=== PATIENT | female | born 1985 | race Caucasian/White ===

== ENCOUNTER 2018-04-14 18:02 | Emergency (ER) | payer OTHER ==
[~2018-04-14] VITALS: Ht 154.9 cm; Wt 59.4 kg
[2018-04-14 18:03] VITALS: BP 111/71
[2018-04-14] MEDS ORDERED: BENA25CA4 PO (19:00)
[2018-04-14] MEDS ORDERED: PRED20TA PO (19:00)
== END 2018-04-14 19:10 | disposition home or self-care (01) ==
LOC: M ED 18:02
DX: R21 Rash and other nonspecific skin eruption (principal); F17.200 Nicotine dependence, unspecified, uncomplicated; Z88.8 Allergy status to other drugs, medicaments and biological substances

== ENCOUNTER → 2018-07-13 | Outpatient (CLI) | payer OTHER ==
[~2018-07-13] MED LIST: BENA25CA4 PO; GNP28TAB2 PO; PRED20TA PO
[2018-07-13 18:40] LABS: BASO # 0.1 10^3/uL (0.0-0.2); BASO % 0.6 % (0.0-1.0); EOS # 0.1 10^3/uL (0.0-0.50); EOS % 1.2 % (0.0-3.0); HEMATOCRIT 39.6 % (36.0-47.0); HEMOGLOBIN 13.7 g/dl (12.0-15.5); LYMPH # 2.4 10^3/uL (1.5-4.5); MEAN CORPUSCULAR HEMOGLOBIN 29.4 pg (27.0-33.0); MEAN CORPUSCULAR HGB CONC 34.6 g/dl (32.0-36.5); MONO # 0.6 10^3/uL (0.0-0.8); MONO % 5.7 % (0.0-5.0); NEUTROPHILS # 7.6 10^3/uL (1.8-7.7); NEUTROPHILS % 70.1 % (36.0-66.0); PLATELET COUNT, AUTOMATED 215 10^3/uL (150-450); RED BLOOD COUNT 4.66 10^6/uL (4.00-5.40); WHITE BLOOD COUNT 10.8 10^3/uL (4.0-10.0)
[2018-07-13 18:49] LABS: FREE T4 1.39 NG/DL (0.76-1.46); THYROID STIMULATING HORMONE 0.452 uIU/ML (0.358-3.740)
[2018-07-13 22:21] LABS: CHLAMYDIA DNA AMPLIFICATION NEGATIVE (NEGATIVE); GC DNA AMPLIFICATION NEGATIVE (NEGATIVE)
[2018-07-14 11:06] LABS: RUBELLA IgG QUALITATIVE IMMUNE (IMMUNE)
[2018-07-14 12:32] LABS: HIV 1&2 SCREEN CENTAUR NEGATIVE (NEGATIVE)
== END ==
LOC: M SMT 14:31
PROVIDERS: ATTEND Advanced Practice Midwife
DX: Z36.89 Encounter for other specified antenatal screening (principal); Z3A.01 Less than 8 weeks gestation of pregnancy

== ENCOUNTER 2018-07-15 03:41 | Emergency (ER) | payer OTHER ==
[~2018-07-15] VITALS: Ht 157.5 cm; Wt 60.5 kg
[2018-07-15 03:41] VITALS: BP 109/62
[~2018-07-15 03:41] MED LIST changes: -GNP28TAB2 PO
[2018-07-15] MEDS ORDERED: GNP28TAB2 PO (03:45)
[2018-07-15] MEDS ORDERED: ACETAMINOPHEN TAB 650MG DOSE (2X325MG) PO ONE (05:30)
== END 2018-07-15 06:04 | disposition home or self-care (01) ==
LOC: M ED 03:41
DX: Z04.71 Encounter for examination and observation following alleged adult physical abuse (principal); Y04.8XXA Assault by other bodily force, initial encounter; O9A.211 Injury, poisoning and certain other consequences of external causes complicating pregnancy, first trimester; Z3A.01 Less than 8 weeks gestation of pregnancy; Y07.03 Male partner, perpetrator of maltreatment and neglect; Y92.018 Other place in single-family (private) house as the place of occurrence of the external cause; Z88.8 Allergy status to other drugs, medicaments and biological substances

== ENCOUNTER → 2018-08-13 | Outpatient (CLI) | payer OTHER ==
[~2018-08-13] MED LIST changes: +GNP28TAB2 PO
== END ==
LOC: M SMT 09:16
PROVIDERS: ATTEND Obstetrics & Gynecology
DX: Z36.89 Encounter for other specified antenatal screening (principal)

== ENCOUNTER → 2018-10-01 | Outpatient (CLI) | payer OTHER ==
--- NOTE | 2018-10-01 10:57 | REP ---
Obstetric sonography: History: Supervision of . Findings: Scanning through the gravid uterus demonstrates a viable single intrauterine gestation in a cephalic lie. motion is observed and heart rate is recorded at 163 beats per minute. An anterior grade 0 placenta is seen without evidence of previa. Amniotic fluid is subjectively normal. Closed cervical length is 3.5 cm. No extrauterine abnormalities observed. There are bilateral choroid plexus cysts. An echogenic focus is seen within the left ventricle. No other anomaly is seen. Facial profile is seen but nose and lips are less than optimally seen. In addition, left ventricular cardiac outflow tract visualization and spine visualization are suboptimal. The following additional anatomic structures are identified and felt to be unremarkable: cranium, cavum, cerebellum and posterior fossa, lungs, four-chamber heart with right ventricular outflow tract view, diaphragm, left-sided stomach, abdominal wall cord insertion, three-vessel cord, kidneys and bladder, upper and lower extremities. Biometry chart: BPD 4.3 cm = 18 weeks 6 days Head circumference 16.4 cm = 19 weeks 1 day Abdominal circumference 13.5 cm = 19 weeks 0 days Femur length 3.1 cm = 19 weeks 3 days Humeral length 2.9 cm = 19 weeks 3 days HC/AC ratio normal 1.21. Cephalic index normal 0.71. Estimated weight 277 grams, 0 pounds 9 ounces, 49th percentile for 19 weeks 1 day. Impression: Viable single intrauterine gestation at 19 weeks 1 day by today's composite criteria. DIANA by today's sonography February 24, 2019. Bilateral choroid plexus cysts and an echogenic focus seen in the left ventricle. nose, lips, left ventricular outflow tract view and spine visualization are less than optimally achieved. Electronically Signed by Yovanny Tian MD 10/01/2018 11:20 A
== END ==
LOC: M RAD 09:00
PROVIDERS: ATTEND Obstetrics & Gynecology
DX: Z34.82 Encounter for supervision of other normal pregnancy, second trimester (principal); Z3A.19 19 weeks gestation of pregnancy

== ENCOUNTER → 2018-10-22 | Outpatient (CLI) | payer OTHER ==
[~2018-10-22] MED LIST changes: +NAPR250T4 PO; +OXYC1TAB23 PO
--- NOTE | 2018-10-22 07:55 | REP ---
Clinical: Anatomical evaluation. Comparison: 10/01/2018 . Findings: Examination demonstrates a single live intrauterine in breech presentation. motion is identified by technologist. Placenta is noted anterior and grade zero without evidence for placenta previa or abruption. Amniotic fluid volume is normal. Cervix measures 4.1 cm in length and appears closed. No evidence for nuchal cord. Gestational age by LMP 22 weeks 1 day with DIANA 02/24/2019 . Gestational age by current measurements 21 weeks 6 days with DIANA 02/26/2019 . FHR equals 147 beats per minute. Estimated weight 463 grams ( 41st percentile). Anatomical assessment demonstrates normal structures including cranium, choroid plexus, cavum, cerebellum/posterior fossa, facial features, lungs, four-chamber heart/ventricular outflow tracts, diaphragm, stomach, cord insertion/three-vessel cord, kidneys/bladder, and extremities. Suboptimal evaluation of the spine due to positioning. Previously noted choroid plexus cysts have resolved. Echogenic focus within the left cardiac ventricle consistent with prominent chordae tendineae. Impression: Single live intrauterine in breech presentation. Continued anatomical limitations as noted above. Electronically Signed by Dharmesh Mcdowell MD 10/22/2018 07:46 A
== END ==
LOC: M RAD 06:40
PROVIDERS: ATTEND Obstetrics & Gynecology
DX: O34.219 Maternal care for unspecified type scar from previous cesarean delivery (principal); Z3A.21 21 weeks gestation of pregnancy

== ENCOUNTER → 2018-11-11 | Outpatient (CLI) | payer OTHER ==
[~2018-11-11] MED LIST changes: -NAPR250T4 PO; -OXYC1TAB23 PO
--- NOTE | 2018-11-11 22:10 | REP ---
Clinical: Anatomical evaluation. Comparison: 10/22/2018 . Findings: Examination demonstrates a single live intrauterine in variable presentation. motion is identified by technologist. Placenta is noted anterior and grade one without evidence for placenta previa or abruption. Amniotic fluid volume is normal. Cervix measures 4.4 cm in length and appears closed. Nuchal cord cannot be excluded. Gestational age by LMP 24 weeks 5 days with DIANA 02/26/2019 . Gestational age by current measurements 24 weeks 5-day with DIANA it is 02/26/2019 . FHR equals 168 beats per minute. Estimated weight 726 grams ( 35th percentile). Anatomical assessment demonstrates normal structures including cranium, choroid plexus, cavum, cerebellum/posterior fossa, facial features, lungs, four-chamber heart/ventricular outflow tracts, diaphragm, stomach, cord insertion/three-vessel cord, kidneys/bladder, and extremities. Four-chamber heart views demonstrate prominent chordae tendineae. Limited evaluation of the spine again noted. Impression: 1. Single live intrauterine in variable presentation demonstrating appropriate interval growth. 2. Anatomical limitations as noted above may warrant reevaluation and follow-up. Electronically Signed by Dharmesh Mcdowell MD 11/11/2018 10:02 P
== END ==
LOC: M RAD 14:14
PROVIDERS: ATTEND Obstetrics & Gynecology
DX: Z34.83 Encounter for supervision of other normal pregnancy, third trimester (principal)

== ENCOUNTER → 2019-02-02 | Outpatient (REF) | payer OTHER | LOC: M LAB REF 17:01 | PROVIDERS: ATTEND Obstetrics & Gynecology | DX: Z36.85 Encounter for antenatal screening for Streptococcus B (principal); O34.219 Maternal care for unspecified type scar from previous cesarean delivery ==

== ENCOUNTER 2019-02-20 00:49 | Emergency (ER) | payer OTHER ==
[~2019-02-20] VITALS: Ht 157.5 cm; Wt 157.0 kg
[2019-02-20 00:51] VITALS: BP 114/70
--- NOTE | 2019-02-20 02:28 | REPVR ---
PROCEDURE INFORMATION: Exam: US , Limited Exam date and time: 02/20/2019 1:29 AM Age: 33 years old Clinical history: Injury or Trauma; Initial encounter; Wound; Not specified; Lower; Injury Date: 02/20/19; Injury Details: patient fell on ice tonight, hasnt felt the baby move since fall; ; Additional Info: trauma eval TECHNIQUE: Imaging protocol: Real-time ultrasound of the maternal uterus with image documentation. Exam focused on the clinical indication. COMPARISON: US OBS FOLL UP OR REPEAT EACH [facility] 11/11/2018 2:25 PM FINDINGS: GESTATION: Gestation: Single live intrauterine gestation. Heart rate: heart rate measures 133 bpm. Placenta: Placenta is anterior. Amniotic fluid: Amniotic fluid is adequate. BARBI is 13.0. Abdomen: Stomach is unremarkable. Kidneys are unremarkable. Bladder is unremarkable. BIOMETRY: Estimated gestational age: Estimated gestational age is not measured. MATERNAL: Right adnexa: Right ovary is not seen. Left adnexa: Left ovary is not seen. IMPRESSION: 1. Single live intrauterine gestation. 2. Limited evaluation of the is unremarkable. PROCEDURE INFORMATION: Exam: US Doppler Velocimetry of the Umbilical Artery Exam date and time: 02/20/2019 1:29 AM Age: 33 years old Clinical history: Injury or Trauma; Initial encounter; Wound; Not specified; Lower; Injury Date: 02/20/19; Injury Details: patient fell on ice tonight, states hasnt felt the baby move since fall; ; Additional Info: trauma eval TECHNIQUE: Imaging protocol: US Doppler velocimetry of the umbilical artery with Doppler color and waveform analysis. COMPARISON: US OBS FOLL UP OR REPEAT EACH [facility] 11/11/2018 2:25 PM FINDINGS: Umbilical cord and insertion: Umbilical cord anatomy is not fully evaluated. Umbilical artery Doppler: Waveforms are within normal limits for age. Umbilical artery peak systolic velocity: 53 cm/s Umbilical artery systolic to diastolic ratio: Systolic to diastolic ratio is within normal limits for age. 2.31. IMPRESSION: Umbilical Doppler is within normal limits. Electronically signed by: Carlos Enrique Auguste On 02/20/2019 02:28:34 AM
== END 2019-02-20 03:12 | disposition home or self-care (01) ==
LOC: M ED 00:49
DX: S80.12XA Contusion of left lower leg, initial encounter (principal); W00.0XXA Fall on same level due to ice and snow, initial encounter; Z3A.38 38 weeks gestation of pregnancy; Z33.1 Pregnant state, incidental; Z88.8 Allergy status to other drugs, medicaments and biological substances

== ENCOUNTER 2019-02-24 05:37 | Inpatient (IN) | payer OTHER ==
[~2019-02-24] VITALS: Ht 157.5 cm; Wt 69.3 kg
[2019-02-24] VITALS (9 sets, daily range): BP systolic 88–104; BP diastolic 50–72
[2019-02-24] MEDS ORDERED: ceFAZolin SOD 2 GM in IV 1 EA IV ONE (06:30)
[2019-02-24] MEDS ORDERED: BICITRA 30ML SOLN UDC PO ONE (06:30)
[2019-02-24] MEDS ORDERED: LR 1,000 ML IV ONE (06:30)
[2019-02-24 06:38] LABS: HEMATOCRIT 34.4 % (36.0-47.0); HEMOGLOBIN 11.3 g/dl (12.0-15.5); MEAN CORPUSCULAR HEMOGLOBIN 28.5 pg (27.0-33.0); MEAN CORPUSCULAR HGB CONC 32.8 g/dl (32.0-36.5); MEAN CORPUSCULAR VOLUME 86.6 fl (80.0-96.0); PLATELET COUNT, AUTOMATED 128 10^3/uL (150-450); RED BLOOD COUNT 3.97 10^6/uL (4.00-5.40)
[2019-02-24] MEDS ORDERED: ONDANSETRON 4MG/2ML VIAL (J2405) As Ordered ONE (07:20)
[2019-02-24] MEDS ORDERED: KETOROLAC 60 MG/2 ML VIAL (J1885) As Ordered ONE (07:20)
[2019-02-24] MEDS ORDERED: dexameTHASONE 4 MG/ML 1ML VIAL (J1100) As Ordered ONE (07:20)
[2019-02-24] MEDS ORDERED: OXYTOCIN INJ 10 UNITS/ML VIAL (J2590) As Ordered ONE (07:20)
[2019-02-24] MEDS ORDERED: fentaNYL 100 MCG/2 ML INJECTION (J3010) As Ordered ONE (07:21)
[2019-02-24] MEDS ORDERED: MORPHINE PRES-FREE INJ 10 MG/10 ML VIAL (J2274) As Ordered ONE (07:21)
[2019-02-24] MEDS ORDERED: LR 1,000 ML IV SCH ×3 (07:30→09:30)
[2019-02-24] MEDS ORDERED: ATROPINE SULF 0.4 MG/ML 1ML VIAL (J0461) As Ordered ONE (08:19)
[2019-02-24] MEDS ORDERED: ePHEDrine SULFATE 25 MG/5 ML(5MG/ML) SYRINGE As Ordered ONE (08:52)
[2019-02-24] MEDS ORDERED: PHENYLephrine HCL 500 MCG/5 ML (100MCG/ML) SYRINGE (J2370) As Ordered ONE (08:52)
[2019-02-24] MEDS: PRENATAL VITAMINS CHEWABLE TABLET PO SCH (09:00)
[2019-02-24] MEDS ORDERED: OXYTOCIN DRIP 30 UNITS in IV 1 EA IV SCH (09:03)
[2019-02-24] MEDS ORDERED: OXYC1TAB23 PO (09:06)
[2019-02-24] MEDS ORDERED: RHOGAM 300 MCG (1500 IU) INJ (J2790) IM SCH (09:15)
[2019-02-24] MEDS ORDERED: KETOROLAC 30 MG/ML VIAL (J1885) IV SCH (09:15)
[2019-02-24] MEDS ORDERED: PERCOCET 5MG/325MG TAB PO PRN ×3 (09:15→09:30)
[2019-02-24] MEDS ORDERED: MEASLES,MUMPS,RUBELLA VACCINE INJ (MMR-II) (90707) SC SCH (09:15)
[2019-02-24] MEDS ORDERED: DOCUSATE SODIUM 100 MG CAP PO PRN (09:15)
[2019-02-24] MEDS ORDERED: ONDANSETRON 4 MG TAB (S0181) PO PRN (09:15)
[2019-02-24] MEDS ORDERED: fentaNYL 100 MCG/2 ML INJECTION (J3010) IV PRN (09:30)
[2019-02-24] MEDS ORDERED: METOCLOPRAMIDE INJ 10MG/2ML VIAL (J2765) IV PRN (09:30)
[2019-02-24] MEDS ORDERED: ONDANSETRON 4MG/2ML VIAL (J2405) IV PRN (09:30)
[2019-02-24] MEDS ORDERED: OXYTOCIN 30 UNITS IN 0.9% NaCl 500ML IV BAG (J2590) As Ordered ONE (09:46)
[2019-02-24] MEDS ORDERED: PILL CUTTER 1 EACH XX PRN (12:15)
[2019-02-25 02:00] VITALS: BP 90/52
[2019-02-25 06:00] VITALS: BP 84/52
[2019-02-25 07:37] LABS: HEMATOCRIT 25.1 % (36.0-47.0); MEAN CORPUSCULAR HEMOGLOBIN 29.5 pg (27.0-33.0); MEAN CORPUSCULAR HGB CONC 33.1 g/dl (32.0-36.5); MEAN CORPUSCULAR VOLUME 89.3 fl (80.0-96.0); PLATELET COUNT, AUTOMATED 104 10^3/uL (150-450); RED BLOOD COUNT 2.81 10^6/uL (4.00-5.40); WHITE BLOOD COUNT 10.6 10^3/uL (4.0-10.0)
[2019-02-25 07:38] LABS: HEMOGLOBIN 8.3 g/dl (12.0-15.5)
[2019-02-25] MEDS: NAPROXEN 250 MG TAB PO SCH ×2 (08:36→20:26)
[2019-02-25] MEDS: PRENATAL VITAMINS CHEWABLE TABLET PO SCH (09:00)
[2019-02-25 10:30] VITALS: BP 95/50
[2019-02-25] MEDS ORDERED: IBUPROFEN 800 MG TAB PO SCH (11:15)
[2019-02-25] MEDS: ACETAMINOPHEN 500 MG TAB PO PRN (13:49)
[2019-02-25 13:56] LABS: HEMATOCRIT 28.4 % (36.0-47.0); MEAN CORPUSCULAR HEMOGLOBIN 28.8 pg (27.0-33.0); MEAN CORPUSCULAR HGB CONC 31.7 g/dl (32.0-36.5); MEAN CORPUSCULAR VOLUME 90.7 fl (80.0-96.0); PLATELET COUNT, AUTOMATED 103 10^3/uL (150-450); RED BLOOD COUNT 3.13 10^6/uL (4.00-5.40); WHITE BLOOD COUNT 10.6 10^3/uL (4.0-10.0)
[2019-02-25 14:00] VITALS: BP 95/51
[2019-02-25 14:28] LABS: ALT/SGPT 18 U/L (12-78); BILIRUBIN,TOTAL 0.3 MG/DL (0.2-1.0); CREATININE FOR GFR 0.74 MG/DL (0.55-1.30); GLOMERULAR FILTRATION RATE > 60.0 (>60); LDH LACTATE DEHYDROGENASE 207 U/L (84-246); URIC ACID 5.1 MG/DL (2.6-6.0)
[2019-02-25 18:00] VITALS: BP 92/52
[2019-02-25 22:05] VITALS: BP 90/55
[2019-02-26 02:25] VITALS: BP 93/54
[2019-02-26] MEDS: ACETAMINOPHEN 500 MG TAB PO PRN (05:13)
[2019-02-26 06:11] VITALS: BP 90/55
[2019-02-26] MEDS: PRENATAL VITAMINS CHEWABLE TABLET PO SCH (08:23)
[2019-02-26] MEDS: NAPROXEN 250 MG TAB PO SCH (08:23)
[2019-02-26] MEDS ORDERED: NAPR250T4 PO (09:06)
== END 2019-02-26 12:12 | disposition home or self-care (01) | DRG 540 ==
LOC: M LDI 05:37 → M OBS 11:00
PROVIDERS: ADMIT Obstetrics & Gynecology; ATTEND Obstetrics & Gynecology
PROC: 10D00Z1 Extraction of Products of Conception, Low, Open Approach (ICD-10-PCS; principal; 2019-02-24 07:30)
DX: O34.211 Maternal care for low transverse scar from previous cesarean delivery (principal); Z3A.39 39 weeks gestation of pregnancy; Z37.0 Single live birth

== ENCOUNTER → 2019-11-07 | Outpatient (CLI) | payer OTHER ==
[~2019-11-07] MED LIST changes: +NAPR250T4 PO; +OXYC1TAB23 PO
[2019-11-07 17:58] LABS: HEMATOCRIT 42.7 % (36.0-47.0); HEMOGLOBIN 14.4 g/dl (12.0-15.5); MEAN CORPUSCULAR HGB CONC 33.7 g/dl (32.0-36.5); MEAN CORPUSCULAR VOLUME 85.9 fl (80.0-96.0); PLATELET COUNT, AUTOMATED 227 10^3/uL (150-450); RED BLOOD COUNT 4.97 10^6/uL (4.00-5.40); WHITE BLOOD COUNT 9.1 10^3/uL (4.0-10.0)
[2019-11-07 18:20] LABS: ALBUMIN 4.5 GM/DL (3.2-5.2); ALT/SGPT 29 U/L (12-78); BILIRUBIN,TOTAL 0.3 MG/DL (0.2-1.0); BLOOD UREA NITROGEN 17 MG/DL (7-18); CALCIUM LEVEL 9.4 MG/DL (8.5-10.1); CARBON DIOXIDE LEVEL 29 MEQ/L (21-32); CHLORIDE LEVEL 106 MEQ/L (98-107); CREATININE FOR GFR 0.89 MG/DL (0.55-1.30); GLOMERULAR FILTRATION RATE > 60.0 (>60); GLUCOSE, FASTING 82 MG/DL (70-100); POTASSIUM SERUM 4.9 MEQ/L (3.5-5.1); SODIUM LEVEL 141 MEQ/L (136-145); THYROID STIMULATING HORMONE 0.752 uIU/ML (0.358-3.740); TOTAL PROTEIN 7.5 GM/DL (6.4-8.2)
== END ==
LOC: M PLALAB 14:55
PROVIDERS: ATTEND Obstetrics & Gynecology
DX: R63.5 Abnormal weight gain (principal); R53.83 Other fatigue